=== PATIENT | female | born 2000 | race Caucasian/White ===

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

== ENCOUNTER 2022-10-28 08:00 | Outpatient (RCR) | payer OTHER, SELFPAY | END 2022-10-28 08:50 | disposition home or self-care (01) | LOC: HO.PT 08:00 | PROVIDERS: PCP Obstetrics & Gynecology Gynecology; Visit Provider Obstetrics & Gynecology Gynecology | DX: M79.18 Myalgia, other site (principal); N81.89 Other female genital prolapse; N32.81 Overactive bladder | CPT/HCPCS: 97110; 97112; 97140; 97162; 97535 ==

== ENCOUNTER 2023-04-17 00:42 | Emergency (ER) | payer OTHER, SELFPAY ==
[2023-04-17 00:44] VITALS: BP 128/89; PULSE 71; RESP 16; TEMP 37; O2SAT 97; BMI 27.5
[2023-04-17 01:41] LABS: Influenza A PCR NEGATIVE (Negative); Influenza B PCR NEGATIVE (Negative); Resp Syncy Virus RNA Qual PCR NEGATIVE (Negative); SARS COV2 PCR INHOUSE NEGATIVE (Negative)
--- NOTE | 2023-04-17 01:57 | ED.GENADULT ---
HPI - General Adult General Chief complaint: Upper Respiratory Symptoms Stated complaint: Ear Pain, sore throat Time Seen by Provider: 04/17/23 01:07 Source: patient, RN notes reviewed and old records reviewed Mode of arrival: ambulatory Limitations: no limitations History of Present Illness HPI narrative: 23-year-old female presents for evaluation of sore throat and ear pain. Patient reports that she has had a dry, scratchy throat for the last few days. She started complaining of right ear pain and headache yesterday. She denies cough, fevers, chills She reports that she had RSV 2 years ago and this feels similar No other complaints or concerns at this time Related Data Previous Rx's Medication Instructions Recorded fluticasone propionate 50 2 spray intranasal DAILY #16 grams 03/21/21 mcg/actuation nasal spray,suspension (Flonase Allergy Relief) naproxen 500 mg tablet (Naprosyn) 500 mg PO BID #20 tabs 03/21/21 acetaminophen 500 mg tablet 500 mg PO Q6H PRN pain or fever 03/22/21 (Tylenol Extra Strength) #20 tabs benzonatate 100 mg capsule 100 mg PO TID PRN cough #14 caps 03/22/21 (Tessalon Perles) cefdinir 300 mg capsule 300 mg PO Q12H 7 days #14 caps 03/22/21 ciprofloxacin HCl 250 mg tablet 250 mg PO Q12H 3 days #6 tabs 05/07/21 (Cipro) azithromycin 250 mg tablet 250 mg PO DAILY 4 days #4 tabs 04/17/23 Allergies Allergy/AdvReac Type Severity Reaction Status Date / Time prochlorperazine Allergy Intermediate Shortness Verified 05/15/21 21:08 of Breath amoxicillin Allergy Mild Hives Verified 05/15/21 21:08 loracarbef Allergy Mild Rash Verified 05/15/21 21:08 permethrin Allergy Mild Rash Verified 05/15/21 21:08 cefaclor Allergy Unknown Unknown Verified 05/15/21 21:08 Sulfa (Sulfonamide Allergy Rash Verified 05/15/21 21:08 Antibiotics) Review of Systems Constitutional: Constitutional: Denies chills, Denies fever(s) and Reports headache(s) ENT: Denies ear discharge, Reports otalgia, Reports headache(s) and Reports sore throat Cardiovascular: Cardiovascular: Denies chest pain and Denies dyspnea Respiratory: Respiratory: Denies cough and Denies dyspnea Gastrointestinal: Gastrointestinal: Denies abdominal pain, Denies nausea and Denies vomiting Neurologic: Reports headache(s) PMFSH Past Medical History Medical History Asthma Von Willebrand disease Social History Social History Alcohol intake: current Patient Tobacco Use Status: Never used Tobacco Advance Directives: No Advance Directives Information Provided: No Physical Exam ED Vital Signs: Vital Signs - 24 hr 04/17/23 00:44 Temperature 98.6 F Pulse Rate 71 Respiratory Rate 16 Blood Pressure 128/89 Pulse Oximetry 97 Oxygen Delivery Method Room Air BMI result Body Mass Index 27.5 Const General: healthy appearing, comfortable, no acute distress, alert and awake Nutritional Appearance: well nourished Orientation/consciousness: patient oriented x3 HENMT Head: Yes normocephalic and Yes atraumatic Ears: external ears normal, right TM abnormal (Cerumen impaction) and TM normal on the left Eyes Eyelids: Yes eyelids normal Conjunctivae: conjunctivae normal Sclerae: sclerae normal Corneas: corneas normal Pupils: Equal, round and reactive pupils present EOM: EOMs intact bilaterally Neck Neck: Yes full ROM Resp Effort & Inspection: normal respiratory effort, able to speak in complete sentences and not labored Skin General skin exam: no rashes or lesions noted and elasticity normal Neuro General: patient oriented x3 Cranial nerves: Yes Equal, round and reactive pupils present and Yes Bilaterally intact EOM present Cognition (Neuro): normal cognition Extrem Other: Moving all extremities well without any obvious deformities Procedures Procedure Narrative Procedure Narrative: Patient's right ear was irrigated slowly with approximately 150 cc of hydrogen peroxide mixed with warm water. A curette was then used to remove a large chunk of cerumen from the right external ear canal. On re-evaluation the patient's right tympanic membrane is erythematous, bulging without any perforation Medical Decision Making Medical Decision Making MDM Narrative: 23-year-old female presents for evaluation of upper respiratory symptoms. She was swabbed for viruses, see procedure note for cerumen disimpaction. Postprocedure she has evidence of acute right otitis media. Discussed strep swab with the patient. She opted declined this exam as she will already be on antibiotics for the otitis media, does not have tonsils or adenoids and there is no evidence of abscess, so the management would not change. Differential Diagnosis Differential Diagnoses: The differential diagnosis associated with the presentation includes Upper respiratory infection Viral syndrome Otitis media Otitis externa COVID-19 Pharyngitis RSV Lab Data Labs: Lab Results 04/17/23 Range/Units 00:52 Influenza Type A (PCR) NEGATIVE (Negative) Influenza Type B (PCR) NEGATIVE (Negative) RSV RNA Qual (PCR) NEGATIVE (Negative) SARS-CoV-2 RNA (RT-PCR) NEGATIVE (Negative) Discharge Plan Discharge Clinical Impression: Acute otitis media, right, Upper respiratory infection Patient Disposition: Home, Self-Care Instructions: Ear Infection (ED) Additional Instructions: Take azithromycin as directed. Use Motrin/Tylenol for pain. Do not stick anything in your ear including Q-tips until your pain resolved You are negative for COVID, influenza and RSV Prescriptions: New azithromycin 250 mg tablet 250 mg PO DAILY 4 Days Qty: 4 0RF Rx Instructions: start on day 2 of therapy No Action acetaminophen [Tylenol Extra Strength] 500 mg tablet 500 mg PO Q6H PRN (Reason: pain or fever) Qty: 20 0RF benzonatate [Tessalon Perles] 100 mg capsule 100 mg PO TID PRN (Reason: cough) Qty: 14 0RF cefdinir 300 mg capsule 300 mg PO Q12H 7 Days Qty: 14 0RF ciprofloxacin HCl [Cipro] 250 mg tablet 250 mg PO Q12H 3 Days Qty: 6 0RF naproxen [Naprosyn] 500 mg tablet 500 mg PO BID Qty: 20 0RF fluticasone propionate [Flonase Allergy Relief] 50 mcg/actuation spray,suspension 2 spray intranasal DAILY Qty: 16 0RF Rx Instructions: administer into each nostril
[2023-04-17] MEDS: Azithromycin 500 MG TABLET PO (02:21)
[2023-04-17 02:23] VITALS: BP 119/82; PULSE 88; RESP 17; TEMP 36.7; O2SAT 98
== END 2023-04-17 02:28 | disposition home or self-care (01) ==
PROVIDERS: Emergency Provider Emergency Medicine Emergency Medical Services
DX: H66.91 Otitis media, unspecified, right ear (principal); J06.9 Acute upper respiratory infection, unspecified; Z20.822 Contact with and (suspected) exposure to COVID-19; Z20.828 Contact with and (suspected) exposure to other viral communicable diseases
CPT/HCPCS: 0241U; 99283

== ENCOUNTER 2023-05-04 17:00 | Outpatient (RCR) | payer OTHER, SELFPAY | END 2023-06-03 10:45 | disposition home or self-care (01) | LOC: HO.PT 17:00 | PROVIDERS: Visit Provider Obstetrics & Gynecology Gynecology | DX: M79.18 Myalgia, other site (principal) | CPT/HCPCS: 97110; 97112; 97140; 97161 ==

== ENCOUNTER 2023-07-30 18:11 | Emergency (ER) | payer OTHER, SELFPAY ==
--- NOTE | 2023-07-30 18:15 | ED.ABDPAIN ---
HPI - Abdominal Pain General Chief Complaint: Vaginal Bleeding Stated Complaint: lightheadedness - endometriosis Time Seen by Provider: 07/30/23 18:32 Related Data Previous Rx's Medication Instructions Recorded fluticasone propionate 50 2 spray intranasal DAILY #16 grams 03/21/21 mcg/actuation nasal spray,suspension (Flonase Allergy Relief) naproxen 500 mg tablet (Naprosyn) 500 mg PO BID #20 tabs 03/21/21 acetaminophen 500 mg tablet 500 mg PO Q6H PRN pain or fever 03/22/21 (Tylenol Extra Strength) #20 tabs benzonatate 100 mg capsule 100 mg PO TID PRN cough #14 caps 03/22/21 (Tessalon Perles) cefdinir 300 mg capsule 300 mg PO Q12H 7 days #14 caps 03/22/21 ciprofloxacin HCl 250 mg tablet 250 mg PO Q12H 3 days #6 tabs 05/07/21 (Cipro) azithromycin 250 mg tablet 250 mg PO DAILY 4 days #4 tabs 04/17/23 Allergies Allergy/AdvReac Type Severity Reaction Status Date / Time prochlorperazine Allergy Intermediate Shortness Verified 07/30/23 18:18 of Breath amoxicillin Allergy Mild Hives Verified 07/30/23 18:18 loracarbef Allergy Mild Rash Verified 07/30/23 18:18 permethrin Allergy Mild Rash Verified 07/30/23 18:18 cefaclor Allergy Unknown Unknown Verified 07/30/23 18:18 Sulfa (Sulfonamide Allergy Rash Verified 07/30/23 18:18 Antibiotics) [facility] Past Medical History Medical History Von Willebrand disease Asthma Social History Social History Alcohol intake: current Patient Tobacco Use Status: Never used Tobacco Advance Directives: No Advance Directives Information Provided: No Physical Exam ED Vital Signs: Vital Signs - 24 hr 07/30/23 18:18 07/30/23 19:05 07/30/23 19:06 Temperature 98.8 F Pulse Rate 102 H 98 98 Respiratory Rate 18 Blood Pressure 139/97 H 130/84 137/91 H Pulse Oximetry 98 Oxygen Delivery Method Room Air BMI result Body Mass Index 29.8 Course Course Course Narrative: This is a rapid medical exam. Deferred additional HPI, ROS, PE to primary provider. 23 yo female with past medical history endometriosis, von willebrands disease here with vaginal bleeding since yesterday. Has used 1 tampon/2hrs. Feels lightheaded, had fall today. Takes DDAVP before surgeries. Took Amicar today oral. Will obtain labs, UA, ur preg, orthos VSS Medical Decision Making Lab Data 07/30/23 18:35 07/30/23 18:35 Labs: Lab Results 07/30/23 07/30/23 Range/Units 18:35 18:48 WBC 6.6 (4.8-10.8) X10*3/uL RBC 4.39 (4.20-5.50) X10*6/uL Hgb 12.2 (12.0-16.0) g/dl Hct 37.3 (37.0-47.0) % MCV 85.0 (80.0-98.0) fL MCH 27.8 (27.0-33.0) pg MCHC 32.7 (31.0-35.0) g/dl RDW 12.3 (11.0-16.0) % Plt Count 299 (160-400) X10*3/uL MPV 8.9 L (9.4-12.3) fL Immature Gran % (Auto) 0.3 (0.0-0.4) % Neut % (Auto) 63.1 (45-73) % Lymph % (Auto) 22.3 (20-40) % Nobles % (Auto) 11.6 H (2-11) % Eos % (Auto) 2.4 (0-4) % Baso % (Auto) 0.3 (0-2) % Lymph # (Auto) 1.5 (1.2-4.9) X10*3/uL Nobles # (Auto) 0.8 (0.1-1.2) X10*3/uL Eos # (Auto) 0.2 (0.0-0.4) X10*3/uL Baso # (Auto) 0.0 (0.0-0.2) X10*3/uL Abs Immat Gran (auto) 0.02 (0.00-0.03) X10*3/uL Absolute Neuts (auto) 4.2 (2.0-8.3) x10*3/uL Absolute Nucleated RBC 0.000 (0.0-0.012) X10*3/uL Nucleated RBC % (auto) 0.0 (0.0-0.2) /100WBC PT 12.3 (11.1-13.3) SEC INR 1.0 (0.9-1.1) Sodium 139 (135-145) mmol/L Potassium 4.1 (3.3-5.1) mmol/L Chloride 105 (96-108) mmol/L Carbon Dioxide 28 (22-29) mmol/L Anion Gap 10 L (12-20) BUN 7 L (9-16) mg/dL Creatinine 0.87 (0.5-1.4) mg/dL Estim Creat Clear Calc 103.9 Estimated GFR > 60 Random Glucose 93 (60-115) mg/dL Calcium 9.4 (8.4-10.2) mg/dL Total Bilirubin 0.2 (0.0-1.0) mg/dL Direct Bilirubin < 0.2 (0.0-0.5) mg/dL AST 17 (5-31) U/L ALT 13 (0-31) U/L Alkaline Phosphatase 111 (39-117) U/L Total Protein 7.2 (6.5-8.0) g/dL Albumin 4.2 (3.5-5.0) g/dL Urine Color RED Urine Appearance Hazy Urine pH 7.5 (5.0-9.0) Ur Specific Venus <= 1.005 (1.005-1.025) Urine Protein 100 (2+) H (Neg-Trace) mg/dL Urine Glucose (UA) Negative (Negative) mg/dL Urine Ketones Negative (Negative) mg/dL Urine Blood Large (3+) H (Negative) Urine Nitrite Positive H (Negative) Ur Leukocyte Esterase Large (3+) H (Negative) Urine RBC >20 H (0-2) /HPF Urine WBC 11-20 H (0-5) /HPF Ur Squamous Epith Cells 0-2 (0-2) /HPF Urine Bacteria None Seen (None Seen) Hyaline Casts 0-2 (0-2) /LPF Urine Test NEGATIVE (NEGATIVE) Discharge Plan Discharge Prescriptions: No Action acetaminophen [Tylenol Extra Strength] 500 mg tablet 500 mg PO Q6H PRN (Reason: pain or fever) Qty: 20 0RF benzonatate [Tessalon Perles] 100 mg capsule 100 mg PO TID PRN (Reason: cough) Qty: 14 0RF cefdinir 300 mg capsule 300 mg PO Q12H 7 Days Qty: 14 0RF ciprofloxacin HCl [Cipro] 250 mg tablet 250 mg PO Q12H 3 Days Qty: 6 0RF naproxen [Naprosyn] 500 mg tablet 500 mg PO BID Qty: 20 0RF fluticasone propionate [Flonase Allergy Relief] 50 mcg/actuation spray,suspension 2 spray intranasal DAILY Qty: 16 0RF Rx Instructions: administer into each nostril azithromycin 250 mg tablet 250 mg PO DAILY 4 Days Qty: 4 0RF Rx Instructions: start on day 2 of therapy
[2023-07-30 18:18] VITALS: BP 139/97; PULSE 102; RESP 18; TEMP 37.1; O2SAT 98; BMI 29.8
[2023-07-30 18:38] LABS: MANUAL DIFF FLAG NO
[2023-07-30 18:41] LABS: Basophils Percent Auto 0.3 % (0-2); Eosinophils Absolute Auto 0.2 X10*3/uL (0.0-0.4); Eosinophils Percent Auto 2.4 % (0-4); Hematocrit 37.3 % (37.0-47.0); Hemoglobin 12.2 g/dl (12.0-16.0); Imm Gran Abs Auto 0.02 X10*3/uL (0.00-0.03); Imm Gran Pct Auto 0.3 % (0.0-0.4); Lymphocytes Absolute Auto 1.5 X10*3/uL (1.2-4.9); Lymphocytes Percent Auto 22.3 % (20-40); Mean Corpuscular HGB Conc 32.7 g/dl (31.0-35.0); Mean Corpuscular Hemoglobin 27.8 pg (27.0-33.0); Mean Platelet Volume 8.9 fL (9.4-12.3); Monocytes Absolute Auto 0.8 X10*3/uL (0.1-1.2); Monocytes Percent Auto 11.6 % (2-11); Neutrophils Absolute Auto 4.2 x10*3/uL (2.0-8.3); Neutrophils Percent Auto 63.1 % (45-73); Platelet Count 299 X10*3/uL (160-400); Red Blood Count 4.39 X10*6/uL (4.20-5.50); Red Cell Distribution Width 12.3 % (11.0-16.0); White Blood Count 6.6 X10*3/uL (4.8-10.8)
[2023-07-30 18:46] LABS: Prothrombin Time 12.3 SEC (11.1-13.3)
[2023-07-30 18:59] LABS: Alanine Aminotransferase 13 U/L (0-31); Albumin Level 4.2 g/dL (3.5-5.0); Alkaline Phosphatase 111 U/L (39-117); Anion Gap 10 (12-20); Aspartate Amino Transferase 17 U/L (5-31); Bilirubin Direct < 0.2 mg/dL (0.0-0.5); Bilirubin Total 0.2 mg/dL (0.0-1.0); Blood Urea Nitrogen 7 mg/dL (9-16); Calcium 9.4 mg/dL (8.4-10.2); Carbon Dioxide 28 mmol/L (22-29); Chloride 105 mmol/L (96-108); Creatinine Clr Calc Pharmacy 103.9; Estimated Glomerular Filt Rate > 60; Glucose Random 93 mg/dL (60-115); Potassium 4.1 mmol/L (3.3-5.1); Sodium 139 mmol/L (135-145); Total Protein 7.2 g/dL (6.5-8.0)
[2023-07-30 19:02] LABS: UPreg QC Valid YES; Urine Pregnancy NEGATIVE (NEGATIVE)
[2023-07-30 19:05] VITALS: BP 130/84; PULSE 98
[2023-07-30 19:06] VITALS: BP 137/91; PULSE 98
[2023-07-30 19:08] LABS: Appearance Urine Hazy; Color Urine RED; Glucose Urine UA Negative (Negative); Nitrite Urine Positive (Negative); PH 7.5 (5.0-9.0); Specific Gravity - Urine <= 1.005 (1.005-1.025); UMIC TRIGGER UACC YES; Urine Blood Large (3+) (Negative); Urine Ketones Negative (Negative); Urine Protein 100 (2+) mg/dL (Neg-Trace)
[2023-07-30 19:16] LABS: Leukocyte Esterase Urine Large (3+) (Negative)
--- NOTE | 2023-07-30 19:16 | ED_ITS ---
HPI - Female Genitourinary General Chief complaint: Vaginal Bleeding Stated complaint: lightheadedness - endometriosis Time Seen by Provider: 07/30/23 18:32 Source: patient Mode of arrival: ambulatory Limitations: no limitations History of Present Illness HPI Narrative: Patient with history of endometriosis and Willebrand disease type 1 on Amicar uses DDAVP before procedure comes here for vaginal bleeding started yesterday changing tampons every 2 hours feeling dizzy when stands up patient took 2 g of Amicar prior to arrival no blood clots has pinkish urine color Related Data Previous Rx's Medication Instructions Recorded fluticasone propionate 50 2 spray intranasal DAILY #16 grams 03/21/21 mcg/actuation nasal spray,suspension (Flonase Allergy Relief) naproxen 500 mg tablet (Naprosyn) 500 mg PO BID #20 tabs 03/21/21 acetaminophen 500 mg tablet 500 mg PO Q6H PRN pain or fever 03/22/21 (Tylenol Extra Strength) #20 tabs benzonatate 100 mg capsule 100 mg PO TID PRN cough #14 caps 03/22/21 (Tessalon Perles) cefdinir 300 mg capsule 300 mg PO Q12H 7 days #14 caps 03/22/21 ciprofloxacin HCl 250 mg tablet 250 mg PO Q12H 3 days #6 tabs 05/07/21 (Cipro) azithromycin 250 mg tablet 250 mg PO DAILY 4 days #4 tabs 04/17/23 nitrofurantoin 100 mg PO BID #14 caps 07/30/23 monohydrate/macrocrystals 100 mg capsule (Macrobid) Allergies Allergy/AdvReac Type Severity Reaction Status Date / Time prochlorperazine Allergy Intermediate Shortness Verified 07/30/23 18:18 of Breath amoxicillin Allergy Mild Hives Verified 07/30/23 18:18 loracarbef Allergy Mild Rash Verified 07/30/23 18:18 permethrin Allergy Mild Rash Verified 07/30/23 18:18 cefaclor Allergy Unknown Unknown Verified 07/30/23 18:18 Sulfa (Sulfonamide Allergy Rash Verified 07/30/23 18:18 Antibiotics) Review of Systems 2 Review of Systems: Yes all other systems are reviewed and are negative PMFSH Past Medical History Medical History Von Willebrand disease Asthma Social History Social History Alcohol intake: current Patient Tobacco Use Status: Never used Tobacco Advance Directives: No Advance Directives Information Provided: No Physical Exam 2 Vital Signs: Vital Signs: Last Vital Signs Temp 98.8 F 07/30/23 18:18 Pulse 98 07/30/23 19:06 Resp 18 07/30/23 18:18 BP 137/91 H 07/30/23 19:06 Pulse Ox 98 07/30/23 18:18 O2 Del Method Room Air 07/30/23 18:18 BMI result Body Mass Index 29.8 Appearance: Alert. Oriented X3. No acute distress. Eyes: No pallor or icterus ENT: Pharynx normal. Oral Mucosa moist Neck: Normal inspection. Neck supple. CVS: Normal heart rate and rhythm. Pulses normal. Respiratory: No respiratory distress. Equal air entry bilateral, Abdomen: Soft and nontender. Bowel sounds are present, no mass palpable, no CVA tenderness Skin: Skin warm and dry. Normal skin color. Normal skin turgor. Extremities: No lower extremity edema. No calf tenderness Neuro: Oriented X 3. Medications Administered Discontinued Medications Generic Name Dose Route Start Last Admin Trade Name Freq PRN Reason Stop Dose Admin Desmopressin Acetate 20 mcg/ 55 mls @ 100 mls/hr 07/30/23 19:15 07/30/23 20:30 Sodium Chloride IV 07/30/23 19:47 Infused ONCE ONE Infusion Nitrofurantoin Macrocrystals 100 mg 07/30/23 21:21 07/30/23 21:58 Nitrofurantoin Monohyd/M-Cryst 100 Mg Capsule PO 07/30/23 21:22 100 mg ONCE ONE Administration Medical Decision Making Medical Decision Making [facility] Narrative: Patient was given DDAVP in the ER IV fluids patient feeling better at time of discharge no major active bleeding in the ER Differential Diagnosis Differential Diagnoses: The differential diagnosis associated with the presentation includes UTI/dysfunctional uterine bleed Lab Data [facility] Lab Attestation statement: I reviewed the patient's lab results. 07/30/23 18:35 07/30/23 18:35 Labs: Lab Results 07/30/23 07/30/23 Range/Units 18:35 18:48 WBC 6.6 (4.8-10.8) X10*3/uL RBC 4.39 (4.20-5.50) X10*6/uL Hgb 12.2 (12.0-16.0) g/dl Hct 37.3 (37.0-47.0) % MCV 85.0 (80.0-98.0) fL MCH 27.8 (27.0-33.0) pg MCHC 32.7 (31.0-35.0) g/dl RDW 12.3 (11.0-16.0) % Plt Count 299 (160-400) X10*3/uL MPV 8.9 L (9.4-12.3) fL Immature Gran % (Auto) 0.3 (0.0-0.4) % Neut % (Auto) 63.1 (45-73) % Lymph % (Auto) 22.3 (20-40) % Hill % (Auto) 11.6 H (2-11) % Eos % (Auto) 2.4 (0-4) % Baso % (Auto) 0.3 (0-2) % Lymph # (Auto) 1.5 (1.2-4.9) X10*3/uL Hill # (Auto) 0.8 (0.1-1.2) X10*3/uL Eos # (Auto) 0.2 (0.0-0.4) X10*3/uL Baso # (Auto) 0.0 (0.0-0.2) X10*3/uL Abs Immat Gran (auto) 0.02 (0.00-0.03) X10*3/uL Absolute Neuts (auto) 4.2 (2.0-8.3) x10*3/uL Absolute Nucleated RBC 0.000 (0.0-0.012) X10*3/uL Nucleated RBC % (auto) 0.0 (0.0-0.2) /100WBC PT 12.3 (11.1-13.3) SEC INR 1.0 (0.9-1.1) Sodium 139 (135-145) mmol/L Potassium 4.1 (3.3-5.1) mmol/L Chloride 105 (96-108) mmol/L Carbon Dioxide 28 (22-29) mmol/L Anion Gap 10 L (12-20) BUN 7 L (9-16) mg/dL Creatinine 0.87 (0.5-1.4) mg/dL Estim Creat Clear Calc 103.9 Estimated GFR > 60 Random Glucose 93 (60-115) mg/dL Calcium 9.4 (8.4-10.2) mg/dL Total Bilirubin 0.2 (0.0-1.0) mg/dL Direct Bilirubin < 0.2 (0.0-0.5) mg/dL AST 17 (5-31) U/L ALT 13 (0-31) U/L Alkaline Phosphatase 111 (39-117) U/L Total Protein 7.2 (6.5-8.0) g/dL Albumin 4.2 (3.5-5.0) g/dL Urine Color RED Urine Appearance Hazy Urine pH 7.5 (5.0-9.0) Ur Specific [place] <= 1.005 (1.005-1.025) Urine Protein 100 (2+) H (Neg-Trace) mg/dL Urine Glucose (UA) Negative (Negative) mg/dL Urine Ketones Negative (Negative) mg/dL Urine Blood Large (3+) H (Negative) Urine Nitrite Positive H (Negative) Ur Leukocyte Esterase Large (3+) H (Negative) Urine RBC >20 H (0-2) /HPF Urine WBC 11-20 H (0-5) /HPF Ur Squamous Epith Cells 0-2 (0-2) /HPF Urine Bacteria None Seen (None Seen) Hyaline Casts 0-2 (0-2) /LPF Urine Test NEGATIVE (NEGATIVE) Independent Interpretation I performed an independent interpretation of an: Plain X-Ray Radiology Impression Discussion of test interpretation with radiology: I have reviewed the radiologist's reading. Discharge Plan Discharge Clinical Impression: Vaginal bleeding, UTI (urinary tract infection) Patient Disposition: Home, Self-Care Instructions: Urinary Tract Infection in Women (ED), Menorrhagia (ED) Additional Instructions: Take Amicar as advise till you have heavy vaginal bleed Antibiotic as advised for UTI Follow-up with a bed manager and hematolgist Drink plenty of fluids Prescriptions: New nitrofurantoin monohyd/m-cryst [Macrobid] 100 mg capsule 100 mg PO BID Qty: 14 0RF Rx Instructions: must administer with a meal/food No Action acetaminophen [Tylenol Extra Strength] 500 mg tablet 500 mg PO Q6H PRN (Reason: pain or fever) Qty: 20 0RF benzonatate [Tessalon Perles] 100 mg capsule 100 mg PO TID PRN (Reason: cough) Qty: 14 0RF cefdinir 300 mg capsule 300 mg PO Q12H 7 Days Qty: 14 0RF ciprofloxacin HCl [Cipro] 250 mg tablet 250 mg PO Q12H 3 Days Qty: 6 0RF naproxen [Naprosyn] 500 mg tablet 500 mg PO BID Qty: 20 0RF fluticasone propionate [Flonase Allergy Relief] 50 mcg/actuation spray,suspension 2 spray intranasal DAILY Qty: 16 0RF Rx Instructions: administer into each nostril azithromycin 250 mg tablet 250 mg PO DAILY 4 Days Qty: 4 0RF Rx Instructions: start on day 2 of therapy Interventions: ED Discharge Assessment Last Done: 07/30/23 22:06 Discharge Date/Time: 07/30/23 22:08
[2023-07-30 19:21] LABS: Bacteria Urine None Seen (None Seen); Hyaline Casts Urine 0-2 /LPF (0-2); RBC Urine >20 /HPF (0-2); Squamous Epithelial Cell Urine 0-2 /HPF (0-2); UACC Culture Trigger YES
[2023-07-30] MEDS: Desmopressin Acetate 20 MCG in 0.9 % Sodium Chloride 50 ML 100 MCG IV (19:57)
[2023-07-30] MEDS: Nitrofurantoin Monohyd/M-Cryst 100 MG CAPSULE PO (21:58)
== END 2023-07-30 22:08 | disposition home or self-care (01) ==
PROVIDERS: Nurse Practitioner Family; Emergency Provider Internal Medicine
DX: N93.9 Abnormal uterine and vaginal bleeding, unspecified (principal); N39.0 Urinary tract infection, site not specified; R42 Dizziness and giddiness; Z79.899 Other long term (current) drug therapy
CPT/HCPCS: 36415; 80048; 80076; 81001; 81003; 81025; 85025; 85610; 87086; 96365; 99283; 99284; J2597